=== PATIENT | male | born 1975 | race Caucasian/White ===

== ENCOUNTER 2021-12-04 05:59 | Day surgery (SDC) | payer OTHER ==
[2021-12-04] MEDS ORDERED: Nozin Nasal Sanitizer NASBOTH ONE (06:30)
[2021-12-04] MEDS ORDERED: Lactated Ringers 1,000 ML IV SCH (06:30)
[2021-12-04] MEDS ORDERED: Bupivacaine 0.5% 30 ML SDV ONE (06:54)
[2021-12-04] MEDS ORDERED: ceFAZolin 1 GM in Premix Bag 1 BAG IV ONE (07:00)
[2021-12-04 07:03] LABS: CORONAVIRUS COVID-19 NAA NEGATIVE (NEGATIVE)
[2021-12-04] MEDS ORDERED: Midazolam 1 MG/ML 2 ML SDV ONE ×2 (07:35→08:12)
[2021-12-04] MEDS ORDERED: Propofol 200 MG/20 ML SDV ONE ×2 (07:35→08:33)
[2021-12-04] MEDS ORDERED: fentaNYL 100 MCG/2 ML SDV ONE (07:35)
[2021-12-04] MEDS ORDERED: Lidocaine 0.5% 50 ML SDV ONE (07:37)
[2021-12-04 10:20] VITALS: BP 122/88; PULSE 57
[2021-12-04] MEDS ORDERED: Acetaminophen/HYDROcodone 325-5 MG Tab PO ONE (10:22)
== END 2021-12-04 10:45 | disposition home or self-care (01) ==
LOC: JP.SDS 05:59
PROVIDERS: ATTEND Specialist
DX: S66.212A Strain of extensor muscle, fascia and tendon of left thumb at wrist and hand level, initial encounter (principal); K21.9 Gastro-esophageal reflux disease without esophagitis; Z01.812 Encounter for preprocedural laboratory examination; Z20.822 Contact with and (suspected) exposure to COVID-19
CPT/HCPCS: 0241U; 36415; 80053; 85027; A9270-GY; J0690; J2250; J2704; J3010; J3490; J7120

== ENCOUNTER 2022-09-11 07:03 | Day surgery (SDC) | payer OTHER, MEDICAID ==
[2022-09-11] MEDS ORDERED: Propofol 200 MG/20 ML SDV ONE (07:24)
[2022-09-11] MEDS ORDERED: fentaNYL 100 MCG/2 ML SDV ONE (07:24)
[2022-09-11] MEDS ORDERED: Midazolam 1 MG/ML 2 ML SDV ONE (07:25)
[2022-09-11] MEDS ORDERED: Lactated Ringers 1,000 ML IV SCH (07:30)
[2022-09-11] MEDS ORDERED: Sodium Chloride 0.9% 1,000 ML IV SCH (07:30)
[2022-09-11 09:01] VITALS: PULSE 64
[2022-09-11 09:41] VITALS: BP 116/70
== END 2022-09-11 09:30 | disposition home or self-care (01) ==
LOC: JP.SDS 07:03
PROVIDERS: ATTEND Family Medicine
DX: Z12.11 Encounter for screening for malignant neoplasm of colon (principal); D12.3 Benign neoplasm of transverse colon; K21.9 Gastro-esophageal reflux disease without esophagitis; E11.9 Type 2 diabetes mellitus without complications; Z79.899 Other long term (current) drug therapy
CPT/HCPCS: 45380; 88305; J2250; J2704; J3010; J7120